=== PATIENT | female | born 1965 | race Caucasian/White ===

== ENCOUNTER → 2021-06-22 | Outpatient (CLI) | payer MEDICARE, OTHER | LOC: EXRD 06-14 08:00 | DX: I12.9 Hypertensive chronic kidney disease with stage 1 through stage 4 chronic kidney disease, or unspecified chronic kidney disease (principal); N18.30 Chronic kidney disease, stage 3 unspecified | CPT/HCPCS: 93975 ==

== ENCOUNTER → 2022-04-19 | Outpatient (CLI) | payer MEDICARE, OTHER | LOC: EXRD 04-16 11:30 | DX: Q61.02 Congenital multiple renal cysts (principal); R93.422 Abnormal radiologic findings on diagnostic imaging of left kidney; R93.421 Abnormal radiologic findings on diagnostic imaging of right kidney; N26.1 Atrophy of kidney (terminal); N13.30 Unspecified hydronephrosis | CPT/HCPCS: 76775 ==